=== PATIENT | male | born 1990 | race Caucasian/White ===

== ENCOUNTER 2017-05-01 12:43 | Emergency (ER) | payer OTHER | END 2017-05-01 12:52 | disposition home or self-care (01) | LOC: E/R 12:43 | DX: H10.33 Unspecified acute conjunctivitis, bilateral (principal) | CPT/HCPCS: 99284; Z7502 ==

== ENCOUNTER 2017-12-10 20:10 | Emergency (ER) | payer SELFPAY, OTHER ==
[2017-12-10] MEDS: IBUPROFEN 600 MG TAB PO (22:59)
== END 2017-12-10 23:21 | disposition home or self-care (01) ==
LOC: FTE 20:10
DX: J06.9 Acute upper respiratory infection, unspecified (principal)
CPT/HCPCS: 99282